=== PATIENT | female | born 1950 | race Caucasian/White ===

== ENCOUNTER 2016-10-08 09:20 | Emergency (ER) | payer OTHER ==
[~2016-10-08] VITALS: Ht 162.6 cm; Wt 91.1 kg
[2016-10-08] MEDS ORDERED: METF500T27 PO (09:50)
[2016-10-08] MEDS ORDERED: ASPI-496 PO (09:51)
[2016-10-08] MEDS ORDERED: ATOR40TA78 PO (09:52)
[2016-10-08] MEDS ORDERED: LISI-170 PO (09:53)
[2016-10-08] MEDS ORDERED: SERT25TA PO (09:54)
[2016-10-08] MEDS ORDERED: IBUPROFEN 200 MG TABLET ONE (10:21)
[2016-10-08] MEDS ORDERED: IBUPROFEN 200 MG TABLET PO ONE (10:30)
[2016-10-08] MEDS ORDERED: HYDROmorphone 1 MG/ML, 1ML ONE (11:44)
[2016-10-08] MEDS ORDERED: HYDROmorphone 1 MG/ML, 1ML IVPush PRN (12:00)
[2016-10-08 14:14] VITALS: BP 114/51
== END 2016-10-08 14:17 | disposition home or self-care (01) ==
LOC: ED 10:55
DX: M54.12 Radiculopathy, cervical region (principal); Z87.891 Personal history of nicotine dependence
CPT/HCPCS: 72141; 73030; 73221; 93005; 96374; 99284; J1170